=== PATIENT | male | born 1985 | race Two or more races ===

== ENCOUNTER 2017-09-03 16:02 | Emergency (ER) | payer MEDICAID, OTHER ==
--- NOTE | 2017-09-03 16:29 | EDPHY ---
H & P Stated Complaint: mastectomy 07/30 left breast pain- has had multiple hematoma drained. Source: Patient Exam Limitations: No limitations - Personal History Current Tetanus Diphtheria and Acellular Pertussis (TDAP): Yes - Medical/Surgical History Hx Asthma: No Hx Chronic Respiratory Disease: No Hx Diabetes: No Hx Cardiac Disease: No Hx Renal Disease: No Hx Cirrhosis: No Hx Alcoholism: No Hx HIV/AIDS: No Hx Splenectomy or Spleen Trauma: No Other PMH: transitioning to male, hysterectomy, auto immune hepatitis - Social History Smoking Status: Never smoked Time Seen by Provider: 09/03/17 16:28 HPI/ROS: HPI: This is a 32-year-old male who presents with Chief Complaint: mastectomy 07/30 left breast pain- has had multiple hematoma drained. Location: Left breast Quality: Swelling and pain Duration: 2-3 days Signs and Symptoms: no shortness of breath at rest, no shortness of breath on exertion, no cough, no chest pain, no palpitations, no lower extremity edema, no wheezing, no orthopnea, no paroxysmal nocturnal dyspnea, no fever, no injury/ trauma, no hemoptysis, no carpal pedal spasms Timing: Rapidly worsened Severity: Severe Context: Patient has a history of being transgender, in transition into becoming a male, taking testosterone status post mastectomy on 07/30/[address] Gabriel Centeno at [facility] presents today with rapidly worsening to 3 history of swelling and pain in his left breast. Patient believes that this is related to hematoma. Pain is nonradiating in nature. He reports that he has had multiple hematomas drained. Denies any fever. He did take the recent plane trip to [place]. Went to the emergency room there for hematoma to be drained of 150 cc. Patient reports that he was in so much pain that he did not feel he can make a [address] from [place] to [facility] so he came to the [place] emergency room instead. Modifying Factors: See above Comment: ROS: see HPI Constitutional: No fever, no chills, no weight loss Eyes: No blurred vision Respiratory: No shortness of breath, no cough Cardiovascular: No chest pain, no palpitations, no lower extremity edema Gastrointestinal: No nausea, no vomiting, no diarrhea Genitourinary: No dysuria Extremities: No myalgias Neurologic: No weakness, no numbness Skin: No rashes Hematologic: No bruising, no bleeding MEDICAL/SURGICAL/SOCIAL HISTORY: Medical history: Transgender, transitioning to male, auto immune hepatitis Surgical history: Hysterectomy, mastectomy Social history: employed. CONSTITUTIONAL: Moderate distress adult male, nontoxic in appearance, awake and alert HEENT: Atraumatic and normocephalic, PERRL, EOMI. Nares patent; no rhinorrhea; no nasal mucosal edema. Tympanic membranes clear. Oropharynx clear, no exudate and moist pink mucosa. Airway patent. No lymphadenopathy. No meningismus. Cardiovascular: Normal S1/S2, regular rate, regular rhythm, without murmur rub or gallop. PULMONARY/CHEST: Symmetrical and moderate left breast tenderness-very indurated. Mastectomy incisions show no signs of dehiscence/erythema/ discharge. Clear to auscultation bilaterally. Good air movement. No accessory muscle usage. ABDOMEN: Soft, nondistended, nontender, no rebound, no guarding, no peritoneal signs, no masses or organomegaly. No CVAT. EXTREMITIES: 2/2 pulses, strength 5/5, no deformities, no clubbing, no cyanosis or edema. NEUROLOGICAL: no focal neuro deficits. GCS 15. SKIN: Warm and dry, no erythema. no rash. Good capillary refill. (Yoana Erazo) Constitutional: Initial Vital Signs Temperature (C) 36.9 C 09/03/17 16:11 Heart Rate 89 09/03/17 16:11 Respiratory Rate 18 09/03/17 16:11 Blood Pressure 139/81 H 09/03/17 16:11 O2 Sat (%) 98 09/03/17 16:11 O2 Delivery Mode Room Air Allergies/Adverse Reactions: No Known Allergies Allergy (Unverified 09/03/17 16:10) Home Medications: Medication Instructions Recorded Imuran 50 mg (*) 09/03/17 Prednisone 09/03/17 Testosterone 09/03/17 Medical Decision Making ED Course/Re-evaluation: ED decision to consult Dr. Huffman at [facility] IV placed, basic labs ordered, given IV morphine 4 mg upon arrival Vital signs reviewed and stable. No systemic signs. No benefit to image patient while in this emergency room. Will leave to plastic surgery to determine if this is needed. 1650: ED decision to consult. Spoke with Dr. Centeno via phone who advises that patient is more than welcome to be transferred to the ER at [facility] and he will be seen there or he can weight tomorrow morning and be seen in the office. Spoke with patient who reports that he wants to be transferred to [facility] this evening for further care. 1700: Labs reviewed. No signs of leukocytosis/anemia/KOFI/electrolyte imbalance /no elevated sed rate. 1705: Spoke with emergency room attending, Dr. Rick Moralez, who kindly accepts patient in transfer. 1710: EMTALA form completed and patient will travel via BLS. This patient was seen under the supervision of my secondary supervising physician. I evaluated care for this patient independently. Discussed this patient with Dr. Forrester who did not see the patient. (Yoana Erazo) I did not see this patient while he was in the emergency department. However his care was discussed with the PA while the patient was in the department. I agree with treatment plan and management (Jeevan Forrester) Differential Diagnosis: Chest pain including but not limited to myocardial ischemia, pulmonary embolus, chest wall pain, pleural inflammation and pulmonary infectious causes. (Yoana Erazo) - Data Points Laboratory Results: Laboratory Results 09/03/17 16:25 09/03/17 16:25 Medications Given: Discontinued Medications Morphine Sulfate (Morphine) 4 mg IVP EDNOW ONE Stop: 09/03/17 16:48 Last Admin: 09/03/17 16:52 Dose: 4 mg Morphine Sulfate (Morphine) 4 mg IVP EDNOW ONE Stop: 09/03/17 17:39 Last Admin: 09/03/17 17:48 Dose: 4 mg Departure - Departure Disposition: Acute Care Hospital Not [facility] Clinical Impression: S/P mastectomy, bilateral, Complication following left mastoidectomy, Nontraumatic hematoma of breast Condition: Fair Referrals: NONE *PRIMARY CARE P,. [Primary Care Provider] - As per Instructions
[2017-09-03 16:57] LABS: PLATELET COUNT 270 10^3/uL (150-400)
[2017-09-03 18:37] VITALS: BP 147/65
== END 2017-09-03 18:36 | disposition short-term general hospital (02) ==
DX: G89.18 Other acute postprocedural pain (principal); R07.9 Chest pain, unspecified; H95.192 Other disorders following mastoidectomy, left ear; N64.89 Other specified disorders of breast
CPT/HCPCS: 96374; J2270